=== PATIENT | female | born 1950 | race Caucasian/White ===

== ENCOUNTER 2019-05-09 01:05 | Emergency (ER) | payer MEDICARE ==
[~2019-05-09] VITALS: Ht 170.2 cm; Wt 87.0 kg
[2019-05-09] MEDS ORDERED: LABETALOL 5MG/ML, 20ML IVPush ONE ×2 (01:30→02:00)
[2019-05-09] MEDS ORDERED: LABETALOL 5MG/ML, 20ML ONE (01:39)
[2019-05-09 01:41] LABS: BASOPHILS # (AUTO) 0.03 x10^3/uL (0-0.1); BASOPHILS % (AUTO) 1 % (0-1); EOSINOPHILS # (AUTO) 0.19 x10^3/uL (0-0.4); EOSINOPHILS % (AUTO) 3 % (1-7); LYMPHOCYTES # (AUTO) 2.67 x10^3/uL (1-3.4); LYMPHOCYTES % (AUTO) 43 % (22-44); MD NO; MEAN CORPUSCULAR HEMOGLOBIN 29.6 pg (27.0-34.8); MEAN CORPUSCULAR HGB CONC 33.3 g/dL (32.4-35.8); MEAN CORPUSCULAR VOLUME 88.8 fL (80-100); MONOCYTES # (AUTO) 0.72 x10^3/uL (0.2-0.8); MONOCYTES % (AUTO) 12 % (2-9); NEUTROPHILS # (AUTO) 2.59 x10^3/uL (1.8-6.8); NEUTROPHILS % (AUTO) 42 % (42-75); PLATELET COUNT 216 x10^3/uL (130-400); RED BLOOD COUNT 4.73 x10^6/uL (3.82-5.3); RED CELL DISTRIBUTION WIDTH 13.8 % (9.6-15.2)
[2019-05-09 01:54] LABS: ALBUMIN 3.7 g/dL (3.4-5.0); ANION GAP 8 mmol/L (5-15); CALCIUM 9.3 mg/dL (8.5-10.1); CHLORIDE 107 mmol/L (98-107); CREATININE 0.88 mg/dL (0.55-1.02)
[2019-05-09 01:58] LABS: TROPONIN I < 0.015 ng/mL (0.000-0.045)
[2019-05-09] MEDS ORDERED: hydrALAzine 20 MG/ML, 1ML IV ONE (02:30)
[2019-05-09 02:45] VITALS: BP 177/72
== END 2019-05-09 02:53 | disposition home or self-care (01) ==
LOC: ED 01:22
DX: R42 Dizziness and giddiness (principal); I10 Essential (primary) hypertension; E03.9 Hypothyroidism, unspecified; E78.00 Pure hypercholesterolemia, unspecified
CPT/HCPCS: 36415; 80048; 82040; 84484; 85025; 93005; 96372; 96374; 99284